=== PATIENT | male | born 1985 | race Caucasian/White ===

== ENCOUNTER 2017-03-24 21:40 | Emergency (ER) | payer MEDICAID ==
[2017-03-24 21:52] VITALS: BP 148/88
--- NOTE | 2017-03-24 21:58 | EDM.PDOC ---
ED HPI GENERAL MEDICAL PROBLEM - General Chief Complaint: Chest Pain Stated Complaint: CHEST PAINS Time Seen by Provider: 03/24/17 21:55 Source of Information: Reports: Patient History Limitations: Reports: No Limitations - History of Present Illness INITIAL COMMENTS - FREE TEXT/NARRATIVE: 31 yo male presents with recent onset of left anterior chest wall pain. Sx's worse with deep breathing or coughing. Recalls no injury to the area. Does physical work for a living. No SOB or fever. No self tx. No hx of the same. Onset: Today Onset Date: 03/24/17 Duration: Hour(s):, Waxing/Waning Location: Reports: Chest Quality: Reports: Sharp Severity: Moderate Improves with: Reports: Rest Worsens with: Reports: Breathing, Movement Context: Reports: Other (unknown) Associated Symptoms: Reports: No Other Symptoms Treatments RECRUITING COORDINATOR: Reports: Other (see below) (none) right sided chest pain Pain Score (Numeric/FACES): 6 - Related Data Allergies Allergy/AdvReac Type Severity Reaction Status Date / Time No Known Allergies Allergy Verified 03/24/17 21:46 Home Meds: Home Meds Ascorbic Acid [Vitamin C] 1,000 mg PO DAILY 03/24/17 [History] Zinc Sulfate [Zinc-220] 220 mg PO DAILY 03/24/17 [History] guaiFEN/Phenyleph/Acetaminophn [Mucinex Sinus-Max Severe Cplt] 2 tab PO Q4H PRN 03/24/17 [History] Past Medical History - Past Health History Medical/Surgical History: Denies Medical/Surgical History Social & Family History - Tobacco Use Smoking Status *Q: Never Smoker Second Hand Smoke Exposure: No - Recreational Drug Use Recreational Drug Use: No ED ROS GENERAL - Review of Systems Review Of Systems: See Below Constitutional: Reports: No Symptoms Respiratory: Reports: Pleuritic Chest Pain. Denies: Shortness of Breath, Cough , Sputum, Hemoptysis Cardiovascular: Reports: No Symptoms GI/Abdominal: Reports: No Symptoms : Reports: No Symptoms Skin: Reports: No Symptoms Neurological: Reports: No Symptoms ED EXAM, GENERAL - Physical Exam Exam: See Below Exam Limited By: No Limitations General Appearance: Alert, WD/WN, No Apparent Distress Eye Exam: Bilateral Eye: Normal Inspection Ears: Normal External Exam, Normal Canal, Hearing Grossly Normal Ear Exam: Bilateral Ear: Auricle Normal, Canal Normal Nose: Normal Inspection, Normal Mucosa, No Blood Throat/Mouth: Normal Inspection, Normal Lips, Normal Teeth, Normal Oropharynx, Normal Voice, No Airway Compromise Head: Atraumatic, Normocephalic Neck: Normal Inspection, Supple, Non-Tender Respiratory/Chest: No Respiratory Distress, Lungs Clear, Normal Breath Sounds, No Accessory Muscle Use Cardiovascular: Regular Rate, Rhythm, No Edema, Other (L anterior chest wall localized tenderness without crepitus) GI/Abdominal: Normal Bowel Sounds, Soft, Non-Tender, No Distention Extremities: Normal Inspection, Normal Range of Motion, Non-Tender, No Pedal Edema Neurological: Alert, Oriented, CN II-XII Intact, Normal Cognition, No Motor/ Sensory Deficits Psychiatric: Normal Affect, Normal Mood Skin Exam: Warm, Dry, Intact, Normal Color, No Rash Lymphatic: No Adenopathy EKG INTERPRETATION EKG Date: 03/24/17 Time: 21:40 Rhythm: NSR Rate (Beats/Min): 82 [place]: Normal P-Wave: Present QRS: Normal ST-T: Normal QT: Normal Comparison: NA - No Prior EKG Course - Vital Signs Last Recorded V/S: Last Vital Signs Temp 38.0 C 03/24/17 21:59 Pulse 84 03/24/17 21:59 Resp 26 H 03/24/17 21:59 BP 148/88 H 03/24/17 21:59 Pulse Ox 97 03/24/17 21:59 - Orders/Labs/Meds Orders: Active Orders 24 hr Category Date Time Status EKG Documentation Completion [RC] ASDIRECTED Care 03/24/17 21:50 Active EKG 12 Lead [EK] Routine Ther 03/24/17 21:50 Ordered Meds: Medications Discontinued Medications Generic Name Dose Route Start Last Admin Trade Name Freq PRN Reason Stop Dose Admin Ketorolac Tromethamine 60 mg 03/24/17 22:03 Toradol IM 03/24/17 22:04 ONETIME ONE Departure - Departure Time of Disposition: 22:20 Disposition: Home, Self-Care 01 Condition: Good Clinical Impression: Acute chest wall pain Referrals: PCP,None [Primary Care Provider] - Forms: ED Department Discharge Additional Instructions: Take ibuprofen 600 mg every 6 hrs with food for pain relief starting after 4 am tonight. Take acetaminophen as needed for added relief. Recheck with your provider if not improving over the next couple of weeks. - My Orders Last 24 Hours: My Active Orders 03/24/17 21:50 EKG Documentation Completion [RC] ASDIRECTED EKG 12 Lead [EK] Routine - Assessment/Plan Last 24 Hours: My Active Orders 03/24/17 21:50 EKG Documentation Completion [RC] ASDIRECTED EKG 12 Lead [EK] Routine
[2017-03-24] MEDS ORDERED: Ketorolac 60 MG/2 ML SDV IM ONE (22:03)
== END 2017-03-24 22:24 | disposition home or self-care (01) ==
LOC: JP.ED 21:40
DX: R07.89 Other chest pain (principal); Z79.899 Other long term (current) drug therapy
CPT/HCPCS: 93005; 96372; 99285; J1885